=== PATIENT | female | born 1935 | race Caucasian/White ===

== ENCOUNTER 2016-07-07 06:28 | Day surgery (SDC) | payer MEDICARE, OTHER ==
--- NOTE | ~2016-07-07 | EGD ---
EGD REPORT [facility] [address] [place] [address] NAME: ADAMS DARBY : [birth year] STATUS : REG [facility]#: [id number] AGE: 81 ADM/REG DATE : 07/07/16 MR#: [id number] REPORT SERV DATE: 07/07/16 DICTATED BY: ISMA BROTHERS DATE: 07/07/16 REPORT STATUS : Draft TRANSCRIBED BY: [facility] DATE: 07/07/16 [facility] Patient Name: Adams Darby Date of : 1935 Attending MD: ISMA BROTHERS MD Procedure Date No Time: 07/07/2016 Procedure: Colonoscopy Indications: High risk colon cancer surveillance: Personal history of colonic polyps Referring MD: ROSELYN KIRK Medicines: as per anesthesia Complications: No immediate complications. Procedure: Pre-Anesthesia Assessment: - ASA Grade Assessment: III - A patient with severe systemic disease. After I obtained informed consent, the scope was passed under direct vision. Throughout the procedure, the patient's blood pressure, pulse, and oxygen saturations were monitored continuously. The PCF [id number] was introduced through the anus and advanced to the cecum, identified by appendiceal orifice and ileocecal valve. The colonoscopy was performed without difficulty. The patient tolerated the procedure well. The quality of the bowel preparation was adequate to identify polyps. Findings: The perianal and digital rectal examinations were normal. Internal hemorrhoids were found during endoscopy and were mild. Impression: - Internal hemorrhoids. Recommendation: - Continue present medications. Procedure Code(s): --- Professional --- 50582, Colonoscopy, flexible, proximal to splenic flexure; diagnostic, with or without collection of specimen(s) by brushing or washing, with or without colon decompression (separate procedure) Diagnosis Code(s): --- Professional --- K64.8, Other hemorrhoids Z86.010, Personal history of colonic polyps CPT copyright 2013 [employer]. All rights reserved. EGD REPORT [facility] [address] [place] [address] NAME: ADAMS DARBY : [birth year] STATUS : REG [facility]#: [id number] AGE: 81 ADM/REG DATE : 07/07/16 MR#: [id number] REPORT SERV DATE: 07/07/16 DICTATED BY: ISMA BROTHERS. DATE: 07/07/16 REPORT STATUS : Draft TRANSCRIBED BY: [employer] DATE: 07/07/16 The codes documented in this report are preliminary and upon home furnishings sales representative review may be revised to meet current compliance requirements. ISMA BROTHERS MD 07/07/2016 8:51 AM This report has been signed electronically. Number of Addenda: 0 Note Initiated On: 07/07/2016 8:19 AM Scope Withdrawal Time 0 hours 9 minutes 4 seconds [address] [place] [id number]
[~2016-07-07 06:28] MED LIST: CELEBREX2 PO; EFFEX75 PO; EYE VITAMINS PO; FISH OIL1200 MG PO; FISH-EPA1000 MG PO; GLUCOPHAGE1000 MG PO; LIPITOR20 PO; MAX25 PO; OCUVITE PO; PEP20 PO; PRILO PO; PROZAC PO; VITAMIN D1000 UNI1 PO; VITAMIN D31000 UNIT PO; WELCHOL625 MG PO; X5 PO; [UNRECOGNIZED DRUG - OTHER] IM
[2016-11-03] MEDS ORDERED: X5 PO (14:11)
[2016-11-03] MEDS ORDERED: ZOFRAN ODT4 MG PO (14:11)
[2016-11-03] MEDS ORDERED: EFFEXOR XR150 MG PO (14:12)
[2016-11-03] MEDS ORDERED: CELEBREX2 PO (14:12)
[2016-11-03] MEDS ORDERED: MAX25 PO (14:12)
[2016-11-03] MEDS ORDERED: HYDROCORTISONE30 G1 TOP (14:12)
[2016-11-03] MEDS ORDERED: ADVIL PO (14:12)
[2016-11-03] MEDS ORDERED: PRILO PO (14:13)
[2016-11-03] MEDS ORDERED: LIPITOR20 PO (14:13)
[2016-11-03] MEDS ORDERED: CIP5 PO (14:13)
[2016-11-03] MEDS ORDERED: FORTAMET1000 MG PO (14:13)
[2016-11-03] MEDS ORDERED: WELCHOL 625 MG625 MG PO (14:14)
[2016-11-03] MEDS ORDERED: VITAMIN E PO (14:14)
[2016-12-08] MEDS ORDERED: PR25 PO (13:25)
[2016-12-08] MEDS ORDERED: PRILO PO (13:38)
[2016-12-19] MEDS ORDERED: CLARIT10 PO (23:53)
[2016-12-19] MEDS ORDERED: ZOFRANODT8 PO (23:54)
[2016-12-26] MEDS ORDERED: T PO (14:04)
[2016-12-26] MEDS ORDERED: VALTREX5 PO (14:05)
[2016-12-26] MEDS ORDERED: CEFAZ1 IV (14:06)
[2016-12-26] MEDS ORDERED: DSS PO (14:07)
== END 2016-07-07 23:59 | disposition home or self-care (01) ==
LOC: DMU 06:28
PROVIDERS: Internal Medicine Gastroenterology
PROC: 0DJD8ZZ Inspection of Lower Intestinal Tract, Via Natural or Artificial Opening Endoscopic (ICD-10-PCS; principal; 2016-07-07 07:30)
DX: Z12.11 Encounter for screening for malignant neoplasm of colon (principal); K64.8 Other hemorrhoids; Z86.010 Personal history of colon polyps; I10 Essential (primary) hypertension; E78.00 Pure hypercholesterolemia, unspecified; K21.9 Gastro-esophageal reflux disease without esophagitis; E11.9 Type 2 diabetes mellitus without complications; Z88.5 Allergy status to narcotic agent; Z91.013 Allergy to seafood; M19.90 Unspecified osteoarthritis, unspecified site; G89.29 Other chronic pain; M54.9 Dorsalgia, unspecified; Z79.899 Other long term (current) drug therapy
CPT/HCPCS: 82962